=== PATIENT | male | born 1955 | race Caucasian/White ===

== ENCOUNTER → 2019-06-13 | Outpatient (CLI) | payer BC ==
[~2019-06-13] MED LIST: AMLO10TA82 PO; ASP81TEC PO; DEXL60CA PO; IRBE300T9 PO; LISI30TA64 PO; MAG-99 PO; MELO-195 PO; MELO15TA39 PO; PNT40TEC PO
--- NOTE | 2019-06-13 14:57 | Diagnostic Imaging Report ---
PROCEDURE: CT pelvis without contrast. TECHNIQUE: Multiple contiguous axial images were obtained through the pelvis without the use of intravenous contrast. Sagittal and coronal reformations were performed. Auto Exposure Controls were utilized during the CT exam to meet ALARA standards for radiation dose reduction. INDICATION: Right groin pain. FINDINGS: The previous CT abdomen/pelvis exam of 09/23/2015 noted postoperative changes consistent with prior inguinal hernia repair on the right. There was no evidence for a recurrent hernia on the prior exam. On this study, the postsurgical changes are again identified. When compared to the previous study, there does not appear to have been any significant change. There is no sign of a recurrent hernia on the right. The left inguinal canal also seems stable in appearance. There is no pelvic mass or free fluid collection evident to indicate an acute abnormality. The urinary bladder and prostate gland are grossly unremarkable. There is diverticulosis of the sigmoid colon, but there is no sign of acute diverticulitis. The appendix is visualized and is not abnormally thickened. The bone windows show no sign of a fracture or of a destructive lesion. IMPRESSION: 1. The postsurgical changes involving the inguinal canal on the right seen previously appear stable. There is no sign of a recurrent hernia. Even so, clinical follow-up is recommended. 2. There is no acute abnormality of the pelvis noted. Dictated by: Dictated on workstation # [id number]
== END ==
LOC: RAD 12:03
PROVIDERS: ATTEND Family Medicine
DX: K43.9 Ventral hernia without obstruction or gangrene (principal); Z98.890 Other specified postprocedural states
CPT/HCPCS: 72192

== ENCOUNTER → 2019-11-17 | Outpatient (CLI) | payer BC ==
--- NOTE | 2019-11-17 14:13 | Diagnostic Imaging Report ---
EXAMINATION: Magnetic resonance imaging of the right knee without intravenous contrast DATE: November 17, 2019. COMPARISON: None. INDICATION: 64-year-old male, right knee pain. TECHNIQUE: Multiplanar, multisequence non contrast enhanced MR imaging was accomplished. FINDINGS: MENISCI: There is an oblique tear involving the anterior horn, body, and posterior horn of the medial meniscus. There is 3 mm medial meniscal extrusionn. The lateral meniscus is intact. LIGAMENTS AND TENDONS: The anterior and posterior cruciate ligaments are intact. The medial collateral ligament is intact. The iliotibial band, mid third lateral capsular ligament, fibular collateral ligament, biceps femoris tendon and conjoined tendon are intact. The quadriceps tendon and patella ligament are intact. JOINT: There is mild fissuring and irregularity of the lateral aspect of the medial patellar facet cartilage. There is a 7 x 6 mm near full-thickness cartilage defect of the lateral femoral condyle. There is generalized approximately 50% thinning of the cartilage of the medial compartment. There is no knee joint effusion, prominent synovitis, or identified intra-articular body. BONE: There is a lobulated T2 hyperintense lesion in the proximal tibial metaphysis most consistent with a benign enchondroma measuring 12 x 12 mm in size. There is prominent subcortical cystic change in the medial tibial plateau with low-level adjacent marrow edema. This may be mechanically or arthritic related. There is a relative lack of degenerative related marrow edema in the medial femoral condyle. There is no acute fracture. There is no evidence of osteonecrosis. BURSAE AND SOFT TISSUES: There is a very small amount of fluid in the popliteal fossa without sizable Dent's cyst. IMPRESSION: 1. Tear involving the entire medial meniscus with 3 mm medial meniscal extrusion. 2. Intact lateral meniscus. 3. Intact anterior and posterior cruciate ligaments. Additional ligaments and tendons are intact. 4. 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 No knee joint effusion. 5. Prominent areas of benign subcortical cystic change in the anterior aspect of the medial tibial plateau. Incidentally noted benign 12 mm enchondroma in the proximal tibial metaphysis. Dictated by: Dictated on workstation # [id number]
== END ==
LOC: RAD 09:59
PROVIDERS: ATTEND Orthopaedic Surgery
DX: S83.241A Other tear of medial meniscus, current injury, right knee, initial encounter (principal); M17.11 Unilateral primary osteoarthritis, right knee; D16.21 Benign neoplasm of long bones of right lower limb; M94.261 Chondromalacia, right knee; X58.XXXA Exposure to other specified factors, initial encounter
CPT/HCPCS: 73721

== ENCOUNTER → 2020-10-28 | Outpatient (CLI) | payer MEDICARE ==
[~2020-10-28] MED LIST changes: +BARIUM for suspension 96% w/w (Vanilla Silq Medium Density) PO ONE; +BARIUM for suspension 98% w/w (Vanilla Silq High Density) PO ONE
--- NOTE | 2020-10-28 09:53 | Diagnostic Imaging Report ---
EXAMINATION: Upper GI exam at 9:03 AM. INDICATION: Abdominal pain. COMPARISON: There are no prior studies available for comparison. FINDINGS: The preliminary film was unremarkable for an acute abnormality. Surgical coils were evident overlying the right lower quadrant. Most likely, these are related to prior hernia repair. A double contrast exam was performed. The patient swallowed the contrast material without difficulty. There was no delay or obstruction to the passage of barium through the esophagus. There was no sign of a hiatal hernia nor was there any evidence for gastroesophageal reflux. The stomach showed good distensibility and motility. There was no mass or ulceration evident. The duodenal bulb and proximal small bowel were unremarkable. IMPRESSION: 1. The esophagus shows good distensibility and motility. There is no evidence for hiatal hernia or gastroesophageal reflux. 2. There is no gastric mass or ulceration. 3. The duodenal bulb and proximal small bowel are unremarkable. 4. A small bowel exam is pending. Dictated by: Dictated on workstation # [id number]
--- NOTE | 2020-10-28 12:13 | Diagnostic Imaging Report ---
EXAMINATION: Small bowel exam. INDICATION: Abdominal pain. FINDINGS: This study was conducted immediately following the upper GI exam. The transit time through the small bowel was approximately 45 minutes (normal transit time 30 minutes to 3 hours). There is no abnormal dilatation, narrowing, or mass effect involving the small bowel. The terminal ileum was visualized and was unremarkable. IMPRESSION: The small bowel exam is within normal limits. Dictated by: Dictated on workstation # [id number]
== END ==
LOC: RAD 08:00
PROVIDERS: ATTEND Internal Medicine Gastroenterology
DX: K21.00 Gastro-esophageal reflux disease with esophagitis, without bleeding (principal); R63.4 Abnormal weight loss
CPT/HCPCS: 74246; 74248